=== PATIENT | female | born 1990 | race Caucasian/White ===

== ENCOUNTER 2017-10-31 06:30 | Day surgery (SDC) | payer BC ==
[2017-10-31] MEDS ORDERED: ceFAZolin IV 2 gm in Dextrose 2 GM/50 ML BAG IVPB ONE (07:47)
[2017-10-31] MEDS ORDERED: Rocuronium 10 mg/ml (10 ml) ONE (08:11)
[2017-10-31] MEDS ORDERED: Lidocaine Hydrochloride 5 ML INJ ONE (08:11)
[2017-10-31] MEDS ORDERED: Succinylcholine Chloride 20 mg/ml Syr (5 ml) IV ONE (08:11)
[2017-10-31] MEDS ORDERED: Propofol 10 mg/ml Inj (20 ML) ONE (08:11)
[2017-10-31] MEDS ORDERED: Midazolam 2 MG/2 ML VIAL ONE (08:11)
[2017-10-31] MEDS ORDERED: Lactated Ringer's 1,000 ML IV ONE ×3 (08:15→14:00)
[2017-10-31] MEDS ORDERED: Neostigmine Methylsulfate 3mg/3ml Syringe IV ONE (10:42)
[2017-10-31] MEDS: HYDROmorphone 0.5 mg/0.5 ml ISec IVP PRN ×3 (12:05→12:52)
[2017-10-31] MEDS ORDERED: Bupivacaine HCl 0.25% PF (10 ml) Inj ONE ×2 (13:43)
[2017-10-31 16:44] LABS: CALCIUM 8.3 mg/dl (8.6-10.4); MAGNESIUM 1.5 mg/dL (1.6-2.3); PHOSPHOROUS 3.6 mg/dL (2.5-4.5)
[2017-10-31 17:02] LABS: T4 9.66 ug/dL (5.5-11.0)
[2017-10-31 17:15] LABS: THYROID STIMULATING HORMONE 0.33 mIU/L (0.46-4.68)
[2017-10-31 17:30] VITALS: BP 112/57; PULSE 60; RESP 20; TEMP 98.2; O2SAT 99
--- NOTE | 2017-11-05 15:13 | PCM.SURG1 ---
Surgeon's Initial Post Op Note - Surgeon's Notes Surgeon: Tommy Murillo MD Electronic Scanner Operator: Vicenta Gee PA-C Type of Anesthesia: General Endo, Block [facility] Pre-Operative Diagnosis: Right knee. #1 ACL complete tear. #2 lateral meniscal tear. #3 healed lateral plateau nondisplaced fracture. #4 MCL partial tear Operative Findings: Right knee. #1 ACL tear. #2 lateral meniscal tear ( complex flap tear from anterior horn to body, complex posterior horn tear). #3 healed lateral plateau nondisplaced fracture. #4 medial meniscal peripheral tear. #5 grade 2 MCL tear. #6 synovitis and medial plica bands Post-Operative Diagnosis: Right knee. #1 ACL complete tear. #2 lateral meniscal tear (complex flap tear from anterior horn to body, complex posterior horn tear). #3 healed lateral plateau nondisplaced fracture. #4 medial meniscal peripheral tear. #5 grade 2 MCL tear. #6 synovitis and medial plica bands Operation Performed: Right knee arthroscopic assisted. #1 ACL reconstruction w / allograft HS. #2 partial lateral menisectomy w/ cocominant all inside lateral meniscal repair. #3 medial meniscal all inside repair. #4 extensive synovectomy and resection plica band. #5 PRP injection Specimen/Specimens Removed: specimen= none. compications= none. tourniquet time= 0min. implants= #1 Linvatec sequent meniscal repair system, 8 implants for LMR, 4 implants for MMR. #2 Arthrex biocomposite interference screws for tibial ACL fixation 2 screws placed ([id number] & 12 x 28mm), tight rope button and suture for femoral sided fixation of ACL graft, semiT & gracilis allograft ( doubled over 10mm width) Estimated Blood Loss: EBL {In ML}: 10 Blood Products Given: N/A Drains Used: No Drains Post-Op Condition: Good Date of Surgery/Procedure: 10/31/17 Time of Surgery/Procedure: 12:00
--- NOTE | 2017-11-06 03:51 | OP ---
PROCEDURE DATE: 10/31/2017 PREOPERATIVE DIAGNOSES: Right knee: 1. Complete anterior cruciate ligament tear. 2. Complex lateral meniscal tear. 3. Healed lateral plateau nondisplaced fracture. 4. Medial collateral ligament partial tear. POSTOPERATIVE DIAGNOSES: Right knee: 1. Complete anterior cruciate ligament tear. 2. Lateral meniscal tear (complex flap tear from anterior horn to body as well as a complex posterior horn tear with longitudinal split) 3. Healed lateral plateau nondisplaced fracture/stress fracture. 4. Medial meniscal peripheral tear. 5. Grade 2 medial collateral ligament tear. 6. Synovitis and medial plica bands. 7. Hypertrophic fat pad. PROCEDURE: Right knee arthroscopic assisted: 1. ACL reconstruction with allograft hamstring. 2. Partial lateral hemisectomy with concomitant all-inside lateral meniscal repair. 3. Medial meniscal all-inside repair. 4. Extensive synovectomy with resection of plica band and debridement of hypertrophic fat pad. 5. PRP injection. SURGEON: Tommy Murillo MD HEARING IMPAIRED TEACHER: Anh Gee PA-C JUSTIFICATION FOR HEARING IMPAIRED TEACHER: Anh Gee is a certified physician respiratory therapist assistant whose skilled surgical service was an absolute necessity for successful completion of the procedure, supervised skilled surgical assistance with positioning of the patient, positioning extremity, management of surgical field, retraction of the neurovascular structures, preparation of ACL graft, preparation of femoral and tibial tunnels, passage of graft and femoral side as well as tibial side of fixation for graft, all-inside lateral meniscal repair, all-inside medial meniscal repair, handling of arthroscopic equipment, management of surgical field, wound closure, placement in postop brace and fitting of brace. Anh Gee was present for the entire case, was an absolute necessity for successful completion of the procedure. ANESTHESIA: General endotracheal anesthesia with a postop regional nerve block placed by Anesthesia staff in PACU. SPECIMEN: None. TOURNIQUET TIME: Zero minutes. IMPLANTS: 1. [employer] all-inside meniscal repair system with placement of eight implants for lateral meniscal repair and four implants for medial meniscal repair. 2. Arthrex BioComposite interference screws for tibial sided ACL fixation with 2 screws placed in total, one measuring 11 mm x 28 mm length and the second measuring 12 mm width x 28 mm length, TightRope button and suture for femoral side of fixation of ACL graft, semitendinosus and gracilis allograft tendon doubled over with a 10-mm width. ESTIMATED BLOOD LOSS: 10 mL. DRAINS: None. COMPLICATIONS: None. DISPOSITION: Patient was extubated and transferred to PACU in stable condition and tolerated the procedure well. INDICATIONS FOR SURGERY: The patient is a 27-year-old female with no significant past medical history, who presents to the office for the first time under my care on 06/06/2017 with right knee pain and instability. Patient stated that on 05/22/2017, she was playing recreational soccer and when she went to kick, she felt two pops and two cracks in the right knee as she pivoted onto her knee. She went to the Emergency Room in [facility] the next day and was diagnosed with a knee sprain. She was instructed to follow up with an orthopedic surgeon as an outpatient. PRESENTATION IN THE OFFICE: Initial presentation, revealed ACL instability and MCL instability of right knee, which was done at [facility] on 06/11/2017 and read as: 1. Nondisplaced, nondepressed fracture of posterior/lateral tibial plateau with bone edema. 2. Horizontal oblique tear of the posterior horn of lateral meniscus extending to the inferior articular surface. 3. Complete tear of the ACL at the mid substance. 4. Partial tear of deep fibers of MCL. 5. Tendinosis of patellar tendon with anterior edema. 6. Large joint effusion. She was referred to Physical Therapy to work on range of motion and was compliant with nonweightbearing and after approximately two months, she had complete resolution of her plateau pain and was able to weightbear without any pain and perform all activities with an [id number] ACL brace on. She was compliant with physical therapy and was able to regain full range of motion and strength. She was unable to return to sports without the use of the [id number] ACL brace, and at that point in time, we had multiple discussions about ACL reconstruction as well as meniscal repair. The MCL partial tear would be treated conservatively. The risks, benefits, and alternatives of the procedure were discussed at length with the patient with the risks including, not limited to infection, neurovascular damage, need for further surgery, failure of graft, failure of fixation, failure of meniscal repair, advanced chondrolysis and degenerative wear, anesthesia complications including , development of blood clots including DVT and PE, development of chronic pain and disability, development of stiffness and need for further surgery. After answering all of her questions, stated that she understood the risks and wished to proceed with surgery. She watched surgical animation videos and diagnosis animation videos and stated that she had a good understanding of her diagnosis as well as the procedures to be done. Clinically, her lateral plateau nondisplaced by a stress fracture had healed with no residual pain at the lateral plateau or posterior knee. On examination, she had significant ACL instability with grade 2 stable MCL tear. She had consistent lateral and medial joint line pain as well with positive lateral and medial Martin's. She was referred to primary care physician for preadmission testing, and the procedure was scheduled at [facility]. PROCEDURE IN DETAIL: The patient was identified in the preoperative holding area, and the right knee was marked for surgery. After brief discussion with the anesthesia staff, perioperative IV antibiotics in the form of 2 g of Ancef were administered. Patient was taken to the operating room and placed in the well-padded operating table with all bony prominences and superficial neurovascular structures well padded. An initial time-out was done with the surgeon, Anesthesia staff, OR staff, all in agreement with the patient, procedure being done, and extremity being operated on. General anesthesia was administered without difficulty or complication. Examination under anesthesia was then carried out. EXAMINATION UNDER ANESTHESIA: Right knee with full range of motion compared to the contralateral knee. Significant ACL instability with 3+ anterior ring cutter lathe operator neutral, external rotation, internal rotation with no firm endpoint, 3+ Amry's without an endpoint, 3+ pivot shift, negative posterior drawer, negative reverse Mary's, negative reverse pivot shift, negative opening to lateral joint line with varus stress at 0 or 30 degrees, negative opening to medial joint line with valgus stress at 0 degrees, 1 to 2+ opening of medial joint line at 30 degrees valgus stress with a firm endpoint. Patella with normal tracking and no evidence of patellofemoral instability. There was a reproducible medial click engaging at 30 degrees along the inferomedial aspect of the patella representing a symptomatic plica band most likely. CONTINUATION OF PROCEDURE: A tourniquet was placed high on the right thigh, but never inflated. Right lower extremity was prepped and draped in standard sterile fashion. Final time-out was done with the surgeon, Anesthesia staff and OR staff, all in agreement with the patient, procedure being done, and extremity being operated on. 50 mL of normal saline were used to insufflate the knee joint. Anterolateral portal was created with stab incision through skin down to subcutaneous tissue down to the level of the capsule. Blunt arthroscopic trocar and cannula were inserted into the suprapatellar pouch, and insufflation with arthroscopic fluid was begun. Arthroscopic camera was inserted, and with the use of the spinal needle localization, optimal entry point for the anteromedial portal was identified. Anteromedial portal was created with stab incision through the skin down to subcutaneous tissue down to the level of capsule. An accessory cannula was inserted through the anteromedial portal, and the knee joint was copiously irrigated for better visualization and removal of synovial debris. With the use of the arthroscopic probe, the diagnostic arthroscopy was then carried out. DIAGNOSTIC ARTHROSCOPY: With the use of the arthroscopic probe, attention was first turned towards the suprapatellar pouch where there was no evidence of loose body or adhesions. Attention then turned towards the patellofemoral joint where there was no evidence of cartilage injury to the patella or the trochlea with well-seated patella within the trochlea. No evidence of instability or subluxation, there was a hypertrophic synovial band of tissue representing a symptomatic plica band medially extending from the inferomedial aspect of the patella to the medial retinaculum. There was significant hypertrophic synovial tissue and inflammation along the anterior aspect of the knee joint and the hypertrophic fat pad. Attention was then turned towards the medial gutter and the medial compartment. With the use of the arthroscopic probe and careful evaluation of the medial meniscus, there was a peripheral complex tear identified at the junction of the posterior horn and body, at the red-red zone with separation of the posterior medial capsule. This tear appeared to be amenable to repair. Medial femoral condyle, medial tibial plateau cartilage were intact without any evidence of chondral injury. Attention was then turned towards the notch where immediately seen was a complete ACL tear with remnant ACL stump present. PCL appeared intact. Attention was then turned towards the lateral compartment with immediately seen was a large flap tear of the anterior horn extending from the anterior horn to the anterior portion of the body. There was also a complex longitudinal cleavage tear involving most of the posterior horn it into a superior and inferior flap. The lateral femoral condyle and lateral tibial plateau exhibited just mild grade 1 chondromalacia at best with no full thickness cartilage defect seen. With the use of the arthroscopic shaver, radiofrequency ablation and arthroscopic meniscal biters, an extensive synovectomy was carried out debriding the hypertrophic fat pad, removing the hypertrophic synovium and the medial plica band while maintaining good hemostasis. Attention was then turned towards the lateral compartment, and with the use of the meniscal biters, radiofrequency ablation, and arthroscopic shaver, a partial lateral meniscectomy was carried out resecting the flap tear that was irreparable, back to stable anterior horn and anterior body tissue, establishing a smooth contour and rim. The complex posterior horn longitudinal cleavage tear was evaluated carefully, and it was felt that the inferior leaflet should be debrided and the superior leaflet stabilized as it did have a red-red zone component to its complex tear with separation from the capsule. With the use of the meniscal biter, radiofrequency ablation and arthroscopic shaver, the posterior horn of the inferior leaflet was debrided and resected. In total, approximately 20% to 25% of the lateral meniscus was removed. Once a stable contour and stable good quality tissue remained, we proceeded with an all-inside lateral meniscal repair to stabilize the posterior horn and reduce it back to the capsule. With the use of the Linvatec all-inside Sequent meniscal repair system, eight implants in total were placed with alternating vertical and horizontal mattress sutures placed with good capsular side of fixation at the posterior horn superior aspect, stabilizing the superior meniscal surface, effectively yielding a stable all-inside meniscal repair stabilizing the remnant meniscal tissue. Attention was then turned towards the medial meniscus. As stated before, there was a small meniscal capsular separation/peripheral tear at the posterior horn that was stabilized within all-inside meniscal repair using the Linvatec Sequent all-inside meniscal repair system with placement of four implants in total resulting in placement of three alternating horizontal and vertical mattress sutures of good capsular side of fixation. This resulted in a stable medial meniscal repair reducing the posterior horn back to the posteromedial capsule. With the use of arthroscopic shaver and radiofrequency ablation, the remnant ACL stump was debrided allowing access and visualization of the [place] footprint at the lateral femoral condyle and anterior tibial plateau. With the use of the Arthrex over the top femoral ACL guide, a 10-mm FlipCutter drill bit was advanced from outside to in after a small incision was made at the distal lateral aspect of the femur. Incision was made through skin down the subcutaneous tissue through the iliotibial band placing the guide directly on the lateral cortex of the distal femur. My respiratory therapist assistant successfully prepared allograft, semitendinosus and gracilis tendon for the ACL reconstruction, doubled over with four strands measuring 10 mm width in total. A 10-mm FlipCutter drill was then advanced from outside to in until it was seen in the interarticular position at the [place] footprint with a single bundle anatomic ACL reconstruction technique in mind. Care was taken not to violate the back wall, and a 25-mm depth socket, 10-mm width was created successfully with no violation of the lateral cortex. The passage suture was then passed from inside to in and tied around the outside of the knee through the lateral portal. Attention was then turned towards creation of a full-thickness 10-mm tibial tunnel. The guide was advanced, and a small incision was made at the proximal medial aspect of the tibial plateau. Guidewire was advanced with the use of the Arthrex tibial ACL guide, PCL referencing, placing the guidewire within the [place] ACL footprint at the tibial plateau. The 10-mm reamer was then passed over the guidewire from outside to in creating a full-thickness 10-mm width tunnel. All soft tissue at the entrance to the tunnels was then debrided, and the suture through the femoral tunnel was passed through the tibial tunnel. The graft prepared by my respiratory therapist assistant was then passed, doubled over through the tibial tunnel into the femoral tunnel and the TightRope button was flipped on to the lateral cortex of the lateral femoral condyle with no __[id number]___ tissue. Mini C-arm fluoroscopy was used to confirm that there was no tissue, and the button sat directly on to the lateral cortex of the lateral femoral condyle. With good tension achieved, the graft was then advanced into the femoral socket up to the 20-mm abdiaziz allowing room for further tightening after the tibial side of fixation was placed. The knee was taken through 30 cycles of full range of motion to remove any creep from the system. Under direct visualization, tension on the graft was applied by my respiratory therapist assistant, and the knee was held at 10 degrees flexion with a posterior drawer applied, and a 11 mm x 28 mm BioComposite interference screw from Arthrex was placed successfully with initially good fixation at the tibial tunnel. The graft was then visualized intraarticularly with arthroscopic camera and was initially tight, and after testing the knee and direct visualization of the screw, it was felt that the screw purchase was not sufficient. There was some within the tunnel. Decision was made instead to remove the 11-mm screw to place a secondary screw anterior to the graft. A 12 mm x 28 mm length interference screw was then placed anterior to the graft with the other screw maintained posteriorly. This provided a stable construct with a stable ACL reconstruction, and the TightRope system was tightened even more to provide stable ACL reconstruction. The knee was then tested, and indeed there was negative anterior drawer, negative Mary's, negative pivot shift achieved. With the use of radiofrequency ablation and arthroscopic shaver, the extensive synovectomy was completed with good hemostasis achieved debriding the fat pad, any remnant plica bands and the hypertrophic synovial tissue. The medial meniscal repair and lateral meniscal repairs were visualized once again and examined and found to be stable, and final arthroscopic images were taken. With the help of Anesthesia staff, 5 mL of PRP were obtained and after all synovial debris and arthroscopic fluid were removed from the knee, the 5 mL of PRP were injected intraarticularly. All wounds were copiously irrigated and reapproximated with #1 Vicryl suture for iliotibial band and deep tissue, 2-0 Vicryl suture for subcutaneous tissue, 3-0 Monocryl suture for skin. Sterile dressings were applied followed by a layer of sterile cast padding from the toes up to the superior thigh, followed by a layer of compressive Keenan wrap from the toes up to the superior thigh. The patient was then fitted and placed in a postop hinge knee brace provided by my office. The patient was then awakened from anesthesia and transferred to PACU in stable condition and tolerated the procedure well. DISPOSITION: The patient will be discharged home once she is recovered from anesthesia. She is instructed to keep the dressings clean, dry and intact until she follows up in the office. She is instructed on how to unlock and lock the brace and work on gentle range of motion on her own until she follows up in the office next week, and she will be referred to start formal physical therapy. She will be given a prescription for Percocet for pain control, and multiple discussions were made about the dangers of narcotic use and careful use of pain medication. We also had multiple discussions about the risk of DVT, albeit, minimal in her age group with no risk factors, but we discussed DVT prophylaxis in the form of aspirin verus Lovenox and other treatment options and after reviewing the treatment options, patient elected to proceed with Lovenox injection once daily for a period of two weeks starting postoperative day #1, and arrangements were made for her to receive the medication. She will follow up in my office at [facility] within one week and already has her postoperative appointment set up. She will contact me directly with any questions or concerns. Tommy Murillo MD
== END 2017-10-31 16:40 | disposition home or self-care (01) ==
LOC: C.SDS 06:30
PROVIDERS: ATTEND Student in an Organized Health Care Education/Training Program
DX: S83.511D Sprain of anterior cruciate ligament of right knee, subsequent encounter (principal); S83.271A Complex tear of lateral meniscus, current injury, right knee, initial encounter; S83.519A Sprain of anterior cruciate ligament of unspecified knee, initial encounter; S83.421A Sprain of lateral collateral ligament of right knee, initial encounter; S83.231A Complex tear of medial meniscus, current injury, right knee, initial encounter; M65.9 Synovitis and tenosynovitis, unspecified
CPT/HCPCS: 29875; 29880; 29888; 36415; 82306; 82310; 83735; 83970; 84100; 84436; 84443; 84480; 84597; J0171; J0690; J1170; J1885; J2250; J2704; J2710; J3010; J7120